=== PATIENT | male | born 1975 | race Native Hawaiian/Other Pacific Islander ===

== ENCOUNTER 2020-08-07 09:46 | Outpatient (CLI) | payer BC ==
[2020-08-07 10:19] LABS: PLATELET COUNT 168 K/uL (142-355)
[2020-08-07 11:08] LABS: POTASSIUM 4.3 mmol/L (3.6-5.2)
== END 2020-08-07 19:09 | disposition home or self-care (01) ==
LOC: LABW 09:46
PROVIDERS: Internal Medicine Gastroenterology
DX: R94.5 Abnormal results of liver function studies (principal); I10 Essential (primary) hypertension; R31.9 Hematuria, unspecified; E78.5 Hyperlipidemia, unspecified; E03.9 Hypothyroidism, unspecified; C85.80 Other specified types of non-Hodgkin lymphoma, unspecified site; E78.1 Pure hyperglyceridemia; E11.9 Type 2 diabetes mellitus without complications
CPT/HCPCS: 36415; 80053; 80061; 80074; 82103; 82390; 82525; 82728; 83036; 83516; 83540; 83550; 84153; 84439; 84443; 84466; 85027; 85610; 86038

== ENCOUNTER 2020-12-14 18:20 | Outpatient (CLI) | payer BC | END 2020-12-14 23:52 | disposition home or self-care (01) | LOC: LABW 18:20 | PROVIDERS: ATTEND Internal Medicine Gastroenterology | DX: K59.1 Functional diarrhea (principal) | CPT/HCPCS: 82272; 82705; 83630; 87015; 87045; 87324; 87328; 87329; 87338; 87449; 87899 ==

== ENCOUNTER 2021-01-18 13:19 | Outpatient (CLI) | payer BC | END 2021-01-18 21:53 | disposition home or self-care (01) | LOC: US 13:19 | PROVIDERS: ATTEND Internal Medicine | DX: I73.9 Peripheral vascular disease, unspecified (principal); R25.2 Cramp and spasm; R20.2 Paresthesia of skin; E11.9 Type 2 diabetes mellitus without complications ==

== ENCOUNTER 2021-10-08 09:05 | Outpatient (CLI) | payer BC | END 2021-10-08 19:36 | disposition home or self-care (01) | LOC: US 09:05 | PROVIDERS: ATTEND Internal Medicine Nephrology | DX: N18.31 Chronic kidney disease, stage 3a (principal) ==